=== PATIENT | female | born 2000 | race Caucasian/White ===

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

== ENCOUNTER 2019-12-03 02:14 | Outpatient (CLI) | payer MEDICAID ==
[2019-12-03 02:54] LABS: APPEARANCE,URINE CLEAR; BILIRUBIN,URINE NEGATIVE (NEGATIVE); COLOR,URINE STRAW; GLUCOSE, URINE NEGATIVE (NEGATIVE); KETONES,URINE NEGATIVE (NEGATIVE); LEUKOCYTE ESTERASE,URINE NEGATIVE (NEGATIVE); NITRITE,URINE NEGATIVE (NEGATIVE); PROTEIN,URINE NEGATIVE (NEGATIVE); URINE SPECIFIC GRAVITY 1.008; UROBILINOGEN,URINE NEGATIVE mg/dL (<2.0)
[2019-12-03 03:11] LABS: URINE AMPHETAMINES SCREEN NEGATIVE; URINE BARBITURATES SCREEN NEGATIVE; URINE BENZODIAZEPINES SCREEN NEGATIVE; URINE COCAINE SCREEN NEGATIVE; URINE MARIJUANA (THC) SCREEN NEGATIVE; URINE METHADONE SCREEN NEGATIVE; URINE PHENCYCLIDINE SCREEN NEGATIVE
[2019-12-03] MEDS ORDERED: HYDROXYZINE PAMOATE 50 MG CAPSULE ONE (03:14)
[2019-12-03] MEDS ORDERED: HYDROXYZINE PAMOATE 50 MG CAPSULE PO ONE (03:30)
--- NOTE | 2019-12-03 03:36 | Non Stress Test Report ---
Non Stress Test Datetime Report Generated by CPN: 12/03/2019 03:35 DEMOGRAPHIC EGA NST: 39.3 INDICATION Indication for Study (NST) Other: Gestational age greater than 32 weeks VITAL SIGNS Temperature - NST: 98.0 Pulse - NST: 80 RESP - NST: 17 NBPSYS NST: 132 NBPDIA NST: 76 URINE RESULTS Urine Protein, NST: Negative Urine Ketones - NST: Negative Urine Glucose - NST: Negative Urine Blood - NST: Negative MONITORING Monitor Explained: Monitor Explained; Test Explained; Patient Verbalized Understanding Time on Monitor: 12/03/2019 02:32 Time off Monitor: 12/03/2019 03:22 NST Duration: 50 NST INTERVENTIONS NST Interventions: PO Hydration; Reposition Patient Physician Notified NST: Dr. De BABY A: [id number] BABY A Movement : Present Contraction Frequency : rare FHR Baseline : 135 Accelerations : 15X15 Decelerations : None Variability : Moderate 6-25bpm NST Review: Meets Criteria for Reactive NST NST Review and Verified By : D Bellavance RN NST Results: Reactive NST REPORT Report Trigger: Send Report
== END 2019-12-03 03:31 | disposition home or self-care (01) ==
LOC: LC 02:14
PROVIDERS: ATTEND Obstetrics & Gynecology
PROC: 4A1HXCZ Monitoring of Products of Conception, Cardiac Rate, External Approach (ICD-10-PCS; principal; 2019-12-03)
DX: O26.893 Other specified pregnancy related conditions, third trimester (principal); R10.9 Unspecified abdominal pain; Z3A.39 39 weeks gestation of pregnancy
CPT/HCPCS: 59025; 81005; 80307; J3490

== ENCOUNTER 2019-12-06 02:19 | Outpatient (CLI) | payer MEDICAID ==
[2019-12-06 03:04] LABS: APPEARANCE,URINE CLEAR; BILIRUBIN,URINE NEGATIVE (NEGATIVE); COLOR,URINE STRAW; GLUCOSE, URINE NEGATIVE (NEGATIVE); KETONES,URINE NEGATIVE (NEGATIVE); LEUKOCYTE ESTERASE,URINE NEGATIVE (NEGATIVE); NITRITE,URINE NEGATIVE (NEGATIVE); PROTEIN,URINE NEGATIVE (NEGATIVE); URINE SPECIFIC GRAVITY 1.006; UROBILINOGEN,URINE NEGATIVE mg/dL (<2.0)
[2019-12-06 03:19] LABS: URINE AMPHETAMINES SCREEN NEGATIVE; URINE BARBITURATES SCREEN NEGATIVE; URINE BENZODIAZEPINES SCREEN NEGATIVE; URINE COCAINE SCREEN NEGATIVE; URINE MARIJUANA (THC) SCREEN NEGATIVE; URINE METHADONE SCREEN NEGATIVE; URINE PHENCYCLIDINE SCREEN NEGATIVE
--- NOTE | 2019-12-06 03:42 | Non Stress Test Report ---
Non Stress Test Datetime Report Generated by CPN: 12/06/2019 03:41 DEMOGRAPHIC EGA NST: 39.6 INDICATION Indication for Study (NST) Other: LC- ctx MONITORING Monitor Explained: Monitor Explained; Test Explained; Patient Verbalized Understanding Time on Monitor: 12/06/2019 02:37 Time off Monitor: 12/06/2019 03:34 NST Duration: 57 NST INTERVENTIONS NST Interventions: PO Hydration; Reposition Patient Physician Notified NST: Dr. Blanco BABY A: [id number] BABY A Movement : Present Movement : Present Contraction Frequency : irregular FHR Baseline : 130 Accelerations : 15X15 Decelerations : None Variability : Moderate 6-25bpm NST Review: Meets Criteria for Reactive NST NST Review and Verified By : Ramiro Puckett RN NST Results: Reactive NST REPORT Report Trigger: Send Report
== END 2019-12-06 03:42 | disposition home or self-care (01) ==
LOC: LC 02:19
PROVIDERS: ATTEND Obstetrics & Gynecology Gynecology
PROC: 4A1HXCZ Monitoring of Products of Conception, Cardiac Rate, External Approach (ICD-10-PCS; principal; 2019-12-06)
DX: O47.1 False labor at or after 37 completed weeks of gestation (principal); Z3A.39 39 weeks gestation of pregnancy
CPT/HCPCS: 59025; 80307; 81005

== ENCOUNTER 2019-12-09 18:13 | Outpatient (CLI) | payer MEDICAID ==
[2019-12-09 19:24] LABS: APPEARANCE,URINE SLIGHTLY-CLOUDY; BILIRUBIN,URINE NEGATIVE (NEGATIVE); COLOR,URINE YELLOW; GLUCOSE, URINE NEGATIVE (NEGATIVE); KETONES,URINE NEGATIVE (NEGATIVE); LEUKOCYTE ESTERASE,URINE NEGATIVE (NEGATIVE); NITRITE,URINE NEGATIVE (NEGATIVE); PROTEIN,URINE 30 mg/dL (NEGATIVE); URINE SPECIFIC GRAVITY 1.021; UROBILINOGEN,URINE NEGATIVE mg/dL (<2.0)
[2019-12-09 19:45] LABS: URINE AMPHETAMINES SCREEN NEGATIVE; URINE BARBITURATES SCREEN NEGATIVE; URINE BENZODIAZEPINES SCREEN NEGATIVE; URINE COCAINE SCREEN NEGATIVE; URINE MARIJUANA (THC) SCREEN NEGATIVE; URINE METHADONE SCREEN NEGATIVE; URINE PHENCYCLIDINE SCREEN NEGATIVE
--- NOTE | 2019-12-09 21:25 | Non Stress Test Report ---
Non Stress Test Datetime Report Generated by CPN: 12/09/2019 21:25 DEMOGRAPHIC EGA NST: 40.2 INDICATION Indication for Study (NST) Other: IUP40 weeks, Abdominal pain MONITORING Monitor Explained: Monitor Explained; Test Explained; Patient Verbalized Understanding Time on Monitor: 12/09/2019 18:49 Time off Monitor: 12/09/2019 21:07 NST Duration: 138 NST INTERVENTIONS NST Interventions: PO Hydration Physician Notified NST: Dr De BABY A: [id number] BABY A Movement : Present Contraction Frequency : irreg FHR Baseline : 135 Accelerations : 15X15 Decelerations : None Variability : Moderate 6-25bpm NST Review: Meets Criteria for Reactive NST NST Review and Verified By : D Bellavance RN NST Results: Reactive NST REPORT Report Trigger: Send Report
== END 2019-12-09 21:29 | disposition home or self-care (01) ==
LOC: LC 18:13
PROVIDERS: ATTEND Obstetrics & Gynecology
PROC: 4A1HXCZ Monitoring of Products of Conception, Cardiac Rate, External Approach (ICD-10-PCS; principal; 2019-12-09)
DX: O47.1 False labor at or after 37 completed weeks of gestation (principal); O99.89 Other specified diseases and conditions complicating pregnancy, childbirth and the puerperium; M54.9 Dorsalgia, unspecified; Z3A.40 40 weeks gestation of pregnancy
CPT/HCPCS: 59025; 80307; 81005

== ENCOUNTER 2019-12-10 00:50 | Inpatient (IN) | payer MEDICAID ==
[2019-12-10 01:17] LABS: APPEARANCE,URINE CLOUDY; BILIRUBIN,URINE NEGATIVE (NEGATIVE); COLOR,URINE YELLOW; GLUCOSE, URINE NEGATIVE (NEGATIVE); KETONES,URINE NEGATIVE (NEGATIVE); LEUKOCYTE ESTERASE,URINE MODERATE (NEGATIVE); NITRITE,URINE NEGATIVE (NEGATIVE); PROTEIN,URINE NEGATIVE (NEGATIVE); URINE SPECIFIC GRAVITY 1.005; UROBILINOGEN,URINE NEGATIVE mg/dL (<2.0)
[2019-12-10 01:39] LABS: URINE AMPHETAMINES SCREEN NEGATIVE; URINE BARBITURATES SCREEN NEGATIVE; URINE BENZODIAZEPINES SCREEN NEGATIVE; URINE COCAINE SCREEN NEGATIVE; URINE MARIJUANA (THC) SCREEN NEGATIVE; URINE METHADONE SCREEN NEGATIVE; URINE PHENCYCLIDINE SCREEN NEGATIVE
[2019-12-10] MEDS ORDERED: RINGERS SOLUTION,LACTATED 1,000 ML IV ONE (03:03)
[2019-12-10] MEDS ORDERED: RINGERS SOLUTION,LACTATED 1,000 ML IV PRN (03:03)
[2019-12-10 03:43] LABS: ABSOLUTE BASOPHILS # (AUTO) 0.1 10^3/uL (0.0-0.2); ABSOLUTE LYMPHOCYTES (AUTO) 1.5 10^3/uL (0.5-4.7); ABSOLUTE MONOCYTES (AUTO) 0.9 10^3/uL (0.1-1.4); BASOPHILS % (AUTO) 0.7 % (0-2); HEMATOCRIT 32.8 % (36.0-47.0); HEMOGLOBIN 10.7 g/dL (12.0-15.5); LYMPHOCYTES % (AUTO) 7.7 % (13-45); MEAN CORPUSCULAR HEMOGLOBIN 22.9 pg (27.0-33.4); MEAN CORPUSCULAR HGB CONC 32.5 g/dL (32.0-36.0); MEAN CORPUSCULAR VOLUME 71 fl (80-97); MONOCYTES % (AUTO) 4.4 % (3-13); PLATELET COUNT 360 10^3/uL (150-450); RED BLOOD COUNT 4.65 10^6/uL (3.72-5.28); RED CELL DISTRIBUTION WIDTH 15.7 % (11.5-14.0); SEGMENTED NEUTROPHILS % (AUTO) 87.2 % (42-78); TOTAL CELLS COUNTED % (AUTO) 100 %; WHITE BLOOD COUNT 19.5 10^3/uL (4.0-10.5)
[2019-12-10] MEDS ORDERED: ACETAMINOPHEN WITH CODEINE #3 TABLET ONE (04:39)
[2019-12-10] MEDS ORDERED: ZOLPIDEM TARTRATE 5 MG TABLET PO PRN (04:43)
[2019-12-10] MEDS ORDERED: BENZOCAINE/MENTHOL AEROSOL SPRAY 56 ML TOP PRN (04:43)
[2019-12-10] MEDS ORDERED: GLYCERIN/WITCH HAZEL LEAF 1 EACH MED..WIPE TP PRN (04:43)
[2019-12-10] MEDS ORDERED: PROMETHAZINE HCL INJ 25 MG/1 ML VIAL IV PRN (04:43)
[2019-12-10] MEDS ORDERED: OXYTOCIN/NORMAL SALINE 20 UNIT/1,000 ML RTUINJ IV PRN (04:43)
[2019-12-10] MEDS ORDERED: PSEUDOEPHEDRINE HCL 30 MG TABLET PO PRN (04:43)
[2019-12-10] MEDS ORDERED: DIBUCAINE 1% OINTMENT 28 GM TP PRN (04:43)
[2019-12-10] MEDS ORDERED: ACETAMINOPHEN WITH CODEINE #3 TABLET PO PRN ×2 (04:43)
[2019-12-10] MEDS ORDERED: PROMETHAZINE HCL 25 MG SUPP.RECT PR PRN (04:43)
[2019-12-10] MEDS ORDERED: NA PHOS,M-B/NA PHOS,DI-BA (ADULT) 133 ML ENEMA PR PRN (04:43)
[2019-12-10] MEDS ORDERED: MEASLES,MUMPS&RUBELLA VACC/PF 0.5 ML VIAL SUBCUT PRN (04:43)
[2019-12-10] MEDS ORDERED: ACETAMINOPHEN 650 MG SUPP.RECT PR PRN (04:43)
[2019-12-10] MEDS ORDERED: DIPHENHYDRAMINE HCL 25 MG CAPSULE PO PRN (04:43)
[2019-12-10] MEDS ORDERED: MAGNESIUM HYDROXIDE SUSP 30 ML UDCUP PO PRN (04:43)
[2019-12-10] MEDS ORDERED: PROMETHAZINE HCL 25 MG TABLET PO PRN (04:43)
[2019-12-10] MEDS ORDERED: DIPH/PERTUSS(ACELL)/TETANUS VAC/PF 0.5 ML SYR (>=10YO) IM PRN (04:43)
--- NOTE | 2019-12-10 05:08 | Delivery Summary ---
Del Sum A-C Datetime Report Generated by CPN: 12/10/2019 05:07 DELIVERY PERSONNEL DELIVERY PERSONNEL: [id number] Delivery Doctor:: Charley De MD Labor and Delivery Nurse:: Rosy Bernard RNdope heater Nurse:: Mily Vicente, RNC MATERNAL INFORMATION Delivery Anesthesia: None Medications After Delivery: Pitocin Bolus-Please Comment; Pitocin Drip 20 Units/1000ml NSS Estimated Blood Loss (ml): 250 Delivery QBL: 250 Maternal Complications: None LABOR SUMMARY EDC: 12/07/2019 00:00 No. Babies in Womb: 1 Attempted: No Labor Anesthesia: None LABOR INFORMATION Reason for Induction: Not Applicable Onset of Labor: 12/10/2019 02:59 Complete Dilatation: 12/10/2019 04:02 Oxytocin: N/A Group B Beta Strep: Negative Antibiotics # of Doses: n/a Steroids Given: None Reason Steroids Not Administered: Not Applicable MEMBRANES Membranes Rupture Method: Spontaneous Rupture of Membranes: 12/10/2019 04:03 Length of Rupture (hr): 0.18 Amniotic Fluid Color: Clear Amniotic Fluid Amount: Small Amniotic Fluid Odor: Normal STAGES OF LABOR Stage 1 hr: 1 Stage 1 min: 3 Stage 2 hr: 0 Stage 2 min: 12 Stage 3 hr: 0 Stage 3 min: 8 Total Time in Labor hr: 1 Total Time in Labor min: 23 VAGINAL DELIVERY Episiotomy: None Laceration #1: Vaginal Laceration Extension #1: N/A Laceration #2: None Laceration Extension #2: N/A Laceration #3: None Laceration Extension #3: N/A Laceration Repair: Yes Laceration Repair Note: labial laceration repaired with 3-0 chromic suture times two Sponge Count Correct: Yes; Vaginal Sweep Performed Sharps Count Correct: No CSECTION DELIVERY Primary Indication: N/A Secondary Indication: N/A CSection Incidence: N/A Labor: N/A Elective: N/A CSection Incision: N/A BABY A INFORMATION Delivery Date/Time: 12/10/2019 04:14 Method of Delivery: Vaginal Born in Route : No : N/A Forceps: N/A Vacuum Extraction: N/A Shoulder Dystocia : No PRESENTATION/POSITION BABY A Presentation: Cephalic Cephalic Presentation: Vertex Vertex Position: Right Occipital Anterior Breech Presentation: N/A PLACENTA INFORMATION BABY A Placenta Delivery Time : 12/10/2019 04:22 Placenta Method of Delivery: Spontaneous Placenta Status: Delivered SCORES BABY A Heart Rate 1 min: >100 bpm Resp Effort 1 min: Good Cry Reflex Irritability 1 min: Cough or Sneeze or Pulls Away Muscle Tone 1 min: Active Motion Color 1 min: Blue/Pale Resuscitation Effort 1 min: Tactile Stimulation SCORE 1 MIN: 8 Heart Rate 5 min: >100 bpm Resp Effort 5 min: Good Cry Reflex Irritability 5 min: Cough or Sneeze or Pulls Away Muscle Tone 5 min: Active Motion Color 5 min: Body Point Isabel, Extremities Blue Resuscitation Effort 5 min: Tactile Stimulation SCORE 5 MIN: 9 INFORMATION BABY A Gestational Age at Delivery: 40.3 Gestational Status: Full Term- 39- 40.6 Weeks Outcome : Liveborn Infant Condition : Stable Infant Sex: Male IDENTIFICATION BABY A Verification Date/Time: 12/10/2019 04:33 ID Band Number: [id number] Mother's Name Verified: Yes Infant RN Verifying : Uche, RN and ERob Unger, RN WEIGHT/LENGTH BABY A Infant Birthweight (gm): 3505 Weight (lb): 7 Weight (oz): 12 Infant Length (in): 20.00 Length (cm): 50.80 CORD INFORMATION BABY A No. Cord Vessels: 3 Nuchal Cord : Around Neck x1, Loose Cord Blood Taken: Yes-For Storage (Mom's Blood type +) Infant Suction: Mouth ASSESSMENT BABY A Complications: None Physical Findings at Delivery: Within Normal Limits Respirations: Appears Normal Skin to Skin: Yes Range Rider/ALS Called : No Infant Care By: Karyn Vicente RN Transferred To: Remains with Mother BABY B INFORMATION : N/A SIGNATURES Signature: with User ID: [email or web address]
[2019-12-10] MEDS: IBUPROFEN 800 MG TABLET PO SCH ×3 (08:11→21:08)
[2019-12-10] MEDS: SENNOSIDES/DOCUSATE 8.6-50 MG 1 EACH TABLET PO SCH (10:31)
[2019-12-10] MEDS: FERROUS SULFATE 325 MG TABLET PO SCH ×2 (10:31→17:30)
[2019-12-10] MEDS: PRENATAL VITAMIN W DHA CAPSULE PO SCH (10:31)
[2019-12-10] MEDS: DOCUSATE SODIUM 100 MG CAPSULE PO SCH ×2 (10:31→17:30)
[2019-12-10] MEDS: FAMOTIDINE 20 MG TABLET PO SCH ×2 (10:34→22:02)
[2019-12-11] MEDS: IBUPROFEN 800 MG TABLET PO SCH ×3 (05:24→21:00)
[2019-12-11 07:03] LABS: HEMATOCRIT 28.7 % (36.0-47.0); HEMOGLOBIN 9.4 g/dL (12.0-15.5); MEAN CORPUSCULAR HEMOGLOBIN 23.1 pg (27.0-33.4); MEAN CORPUSCULAR HGB CONC 32.8 g/dL (32.0-36.0); MEAN CORPUSCULAR VOLUME 71 fl (80-97); PLATELET COUNT 312 10^3/uL (150-450); RED BLOOD COUNT 4.06 10^6/uL (3.72-5.28); RED CELL DISTRIBUTION WIDTH 16.3 % (11.5-14.0); WHITE BLOOD COUNT 13.6 10^3/uL (4.0-10.5)
[2019-12-11] MEDS: SENNOSIDES/DOCUSATE 8.6-50 MG 1 EACH TABLET PO SCH (09:10)
[2019-12-11] MEDS: PRENATAL VITAMIN W DHA CAPSULE PO SCH (09:10)
[2019-12-11] MEDS: DOCUSATE SODIUM 100 MG CAPSULE PO SCH ×2 (09:10→17:20)
[2019-12-11] MEDS: FERROUS SULFATE 325 MG TABLET PO SCH ×2 (09:10→17:20)
[2019-12-11] MEDS: FAMOTIDINE 20 MG TABLET PO SCH ×2 (09:10→21:59)
--- NOTE | 2019-12-11 12:02 | PDOC PROGRESS REPORT ---
Subjective-OB Progress Note for:: 12/11/19 Subjective: 19yo G1 now P1 s/p ppd 1. Voiding and ambulating without difficulty. Denies any concerns at this time. Physical Exam (OB) Vital Signs: Temp Pulse Resp BP Pulse Ox 97.7 F 75 16 119/73 100 12/11/19 08:06 12/11/19 08:06 12/11/19 08:06 12/11/19 08:06 12/11/19 08:06 Intake & Output 12/10/19 12/11/19 12/12/19 06:59 06:59 06:59 Intake Total 840 Balance 840 Weight 80.8 kg - General General Appearance: Appears well In distress: None - PIH/Pre-Eclampsia DTR's: 1 + Clonus: Negative Headache: Absent Epigastric Pain: No Visual Changes: No - Episiotomy/Laceration Site Condition: Well Approximated - Lochia Lochia Amount: Scant < 10 ml Lochia Color: Rubra/Red - Abdomen Description: Soft Hernia Present: No Fundal Description: Firm, Midline Fundal Height: u/u - u/2 - Respiratory Respiratory Status: No respiratory distress - Extremities Upper extremity: Normal inspection Lower extremities: Normal inspection - Neurological Cognition: Inattentive Orientation: AAOx4 - Psychological Associated symptoms: Flat affect Objective-Diagnostic Laboratory: 12/11/19 06:52 12/11/19 06:52 WBC 13.6 H RBC 4.06 Hgb 9.4 L Hct 28.7 L MCV 71 L MCH 23.1 L MCHC 32.8 RDW 16.3 H Plt Count 312 Assessment and Plan(PN) - Assessment and Plan (1) Vaginal delivery Is this a current diagnosis for this admission?: Yes Plan: routine pp care (2) Rubella nonimmune status, delivered, current hospitalization Is this a current diagnosis for this admission?: Yes Plan: vaccinate prior to discharge (3) Anemia complicating , third trimester Is this a current diagnosis for this admission?: Yes Plan: continue FeSO4 BID and increase dietary iron (4) Depression affecting in third trimester, antepartum Is this a current diagnosis for this admission?: Yes Plan: pt currently receiving outpatient counseling at [facility]. Continue to monitor for s/s of PP depression - Time Spent with Patient Time with patient: Less than 15 minutes - Disposition Anticipated Discharge: Home Within: within 24 hours
[2019-12-12] MEDS: IBUPROFEN 800 MG TABLET PO SCH (05:20)
[2019-12-12 08:45] VITALS: BP 126/74
[2019-12-12] MEDS: DOCUSATE SODIUM 100 MG CAPSULE PO SCH (09:09)
[2019-12-12] MEDS: FERROUS SULFATE 325 MG TABLET PO SCH (09:09)
[2019-12-12] MEDS: FAMOTIDINE 20 MG TABLET PO SCH (09:09)
[2019-12-12] MEDS: PRENATAL VITAMIN W DHA CAPSULE PO SCH (09:10)
[2019-12-12] MEDS: SENNOSIDES/DOCUSATE 8.6-50 MG 1 EACH TABLET PO SCH (09:10)
--- NOTE | 2019-12-12 10:26 | PDOC DISCHARGE SUMMARY ---
Impression - Admit/DC Date/PCP Admission Date/Primary Care Provider: 12/10/19 03:11 SHAYY PALACIOS MD Discharge Date: 12/12/19 - PP Day #2, bottle feeding, UOB, voiding, O+, rubella Non-immune, MMR encouraged. - Additional Information Resuscitation Status: Full Code Discharge Diet: As Tolerated, Regular Discharge Activity: Activity As Tolerated, No Lifting Over 10 Pounds, Pelvic Rest Referrals: SHAYY PALACIOS MD [Primary Care Provider] - Prescriptions: Ibuprofen [Motrin 800 mg Tablet] 800 mg PO Q8 #60 tablet Vit/Dha [ Multi + Dha Capsule] 1 cap PO DAILY #30 capsule Home Medications: Ibuprofen [Motrin 800 mg Tablet] 800 mg PO Q8 #60 tablet 12/12/19 Vit/Dha [ Multi + Dha Capsule] 1 cap PO DAILY #30 capsule 12/12/19 HPI Reason(s) for Admission: Onset of Labor Intrapartum Procedure(s): Spontaneous Vaginal Delivery Complication(s): Laceration-Labial Laceration-Degree: 1st Results Laboratory Results: WBC 13.6 10^3/uL (4.0-10.5) H 12/11/19 06:52 RBC 4.06 10^6/uL (3.72-5.28) 12/11/19 06:52 Hgb 9.4 g/dL (12.0-15.5) L 12/11/19 06:52 Hct 28.7 % (36.0-47.0) L 12/11/19 06:52 MCV 71 fl (80-97) L 12/11/19 06:52 MCH 23.1 pg (27.0-33.4) L 12/11/19 06:52 MCHC 32.8 g/dL (32.0-36.0) 12/11/19 06:52 RDW 16.3 % (11.5-14.0) H 12/11/19 06:52 Plt Count 312 10^3/uL (150-450) 12/11/19 06:52 Lymph % (Auto) 7.7 % (13-45) L 12/10/19 03:30 [place] % (Auto) 4.4 % (3-13) 12/10/19 03:30 Eos % (Auto) 0.0 % (0-6) 12/10/19 03:30 Baso % (Auto) 0.7 % (0-2) 12/10/19 03:30 Absolute Neuts (auto) 17.0 10^3/uL (1.7-8.2) H 12/10/19 03:30 Absolute Lymphs (auto) 1.5 10^3/uL (0.5-4.7) 12/10/19 03:30 Absolute Monos (auto) 0.9 10^3/uL (0.1-1.4) 12/10/19 03:30 Absolute Eos (auto) 0.0 10^3/uL (0.0-0.6) 12/10/19 03:30 Absolute Basos (auto) 0.1 10^3/uL (0.0-0.2) 12/10/19 03:30 Seg Neutrophils % 87.2 % (42-78) H 12/10/19 03:30 Urine Color YELLOW 12/10/19 01:05 Urine Appearance CLOUDY 12/10/19 01:05 Urine pH 7.0 (5.0-9.0) 12/10/19 01:05 Ur Specific [place] 1.005 12/10/19 01:05 Urine Protein NEGATIVE mg/dL (NEGATIVE) 12/10/19 01:05 Urine Glucose (UA) NEGATIVE mg/dL (NEGATIVE) 12/10/19 01:05 Urine Ketones NEGATIVE mg/dL (NEGATIVE) 12/10/19 01:05 Urine Blood MODERATE (NEGATIVE) H 12/10/19 01:05 Urine Nitrite NEGATIVE (NEGATIVE) 12/10/19 01:05 Urine Bilirubin NEGATIVE (NEGATIVE) 12/10/19 01:05 Urine Urobilinogen NEGATIVE mg/dL (<2.0) 12/10/19 01:05 Ur Leukocyte Esterase MODERATE (NEGATIVE) H 12/10/19 01:05 Urine Ascorbic Acid NEGATIVE (NEGATIVE) 12/10/19 01:05 Urine Opiates Screen NEGATIVE 12/10/19 01:05 Urine Methadone Screen NEGATIVE 12/10/19 01:05 Ur Barbiturates Screen NEGATIVE 12/10/19 01:05 Ur Phencyclidine Scrn NEGATIVE 12/10/19 01:05 Ur Amphetamines Screen NEGATIVE 12/10/19 01:05 U Benzodiazepines Scrn NEGATIVE 03/31/20 01:05 Urine Cocaine Screen NEGATIVE 12/10/19 01:05 U Marijuana (THC) Screen NEGATIVE 12/10/19 01:05 RPR NONREACTIVE (NONREACTIVE) 12/10/19 03:30 Blood Type O POSITIVE 12/10/19 03:30 Antibody Screen NEGATIVE 12/10/19 03:30 Plan Plan of Treatment: d/c home, f/up with [facility] in 4 wks Time Spent: Less than 30 Minutes
== END 2019-12-12 13:15 | disposition home or self-care (01) | DRG 807 ==
LOC: LC 00:50 → LR 03:11 → 2S 06:34
PROVIDERS: ADMIT Obstetrics & Gynecology; ATTEND Obstetrics & Gynecology
PROC: 10E0XZZ Delivery of Products of Conception, External Approach (ICD-10-PCS; principal; 2019-12-10)
PROC: 0UQMXZZ Repair Vulva, External Approach (ICD-10-PCS; 2019-12-10)
PROC: 3E0234Z Introduction of Serum, Toxoid and Vaccine into Muscle, Percutaneous Approach (ICD-10-PCS; 2019-12-12)
DX: O99.02 Anemia complicating childbirth (principal); Z37.0 Single live birth; O70.0 First degree perineal laceration during delivery; D64.9 Anemia, unspecified; O99.344 Other mental disorders complicating childbirth; F32.9 Major depressive disorder, single episode, unspecified; O69.81X0 Labor and delivery complicated by cord around neck, without compression, not applicable or unspecified; Z34.83 Encounter for supervision of other normal pregnancy, third trimester; Z23 Encounter for immunization; Z28.21 Immunization not carried out because of patient refusal; Z3A.40 40 weeks gestation of pregnancy
CPT/HCPCS: 36415; 80307; 81005; 85025; 85027; 86592; 86850; 86900; 86901; 90715; J3490

== ENCOUNTER 2020-04-25 17:25 | Emergency (ER) | payer MEDICAID ==
--- NOTE | 2020-04-25 18:17 | ER Document Report ---
ED Psych Disorder / Suicide <JACLYN LIRA - Last Filed: 04/25/20 19:03> - General Mode of Arrival: Ambulatory Information source: Patient TRAVEL OUTSIDE OF THE [place] IN LAST 30 DAYS: No - HPI Patient complains to provider of: Suicidal ideation Onset: This afternoon Pain Level: Denies Associated symptoms: Depressed Similar symptoms previously: Yes Recently seen / treated by doctor: No - Related Data Home Medications: prozac 20mg daily <GERALD HACKETT - Last Filed: 04/25/20 19:18> - General Chief Complaint: Post Problem Stated Complaint: DEPRESSION Time Seen by Provider: 04/25/20 17:59 Primary Care Provider: Stephanie Lim [Outside] - Follow up in 1 week (Continue medication management. Request individual therapy.) [facility] [Outside] - Follow up as needed [facility] [Outside] - Follow up as needed SHAYY PALACIOS MD [Primary Care Provider] - Follow up as needed Notes: Patient presents 4 months . Patient states she has history of d epression and has been treated for depression since her most recent delivery. Patient states that she is not feeling as though her medication is helping and she has been having thoughts of suicide. Patient denies any attempts or any plan. Patient denies any other stressors in her life at this time. Patient takes Prozac and states that her dose has been adjusted 2 months ago. (GERALD HACKETT) - Related Data Allergies/Adverse Reactions: No Known Allergies Allergy (Verified 12/09/19 18:27) Past Medical History - General Information source: Patient - Social History Smoking Status: Never Smoker Chew tobacco use (# tins/day): No Frequency of alcohol use: None Drug Abuse: None Occupation: [employer] Lives with: Family Family History: Reviewed & Not Pertinent Renal/ Medical History: Denies: Hx Peritoneal Dialysis Psychiatric Medical History: Reports: Hx Depression, Other - depression Surgical Hx: Negative - Immunizations Immunizations up to date: Yes Hx Diphtheria, Pertussis, Tetanus Vaccination: Yes <GERALD HACKETT - Last Filed: 04/25/20 19:18> Review of Systems - Review of Systems Constitutional: No symptoms reported EENT: No symptoms reported Cardiovascular: No symptoms reported Respiratory: No symptoms reported Gastrointestinal: No symptoms reported. denies: Vomiting Genitourinary: No symptoms reported Female Genitourinary: No symptoms reported Musculoskeletal: No symptoms reported Skin: No symptoms reported Hematologic/Lymphatic: No symptoms reported Neurological/Psychological: Depression, Suicidal ideation. denies: Homicidal ideation <GERALD HACKETT - Last Filed: 04/25/20 19:18> Physical Exam - General General appearance: Appears well, Alert In distress: None - HEENT Head: Normocephalic, Atraumatic Eyes: Normal Conjunctiva: Normal Nasal: Normal Mouth/Lips: Normal Mucous membranes: Normal Neck: Normal, Supple. No: Lymphadenopathy - Respiratory Respiratory status: No respiratory distress Chest status: Nontender Breath sounds: Normal. No: Rales, Rhonchi, Stridor, Wheezing Chest palpation: Normal - Cardiovascular Rhythm: Regular Heart sounds: S1 appreciated, S2 appreciated Murmur: No - Abdominal Inspection: Normal Distension: No distension Tenderness: Nontender - Back Back: Normal. No: CVA tenderness - Extremities General upper extremity: Normal inspection, Nontender, Normal ROM General lower extremity: Normal inspection, Nontender, Normal ROM - Neurological Neuro grossly intact: Yes Cognition: Normal [place] Coma Scale Eye Opening: Spontaneous Ricky Coma Scale Verbal: Oriented Ricky Coma Scale Motor: Obeys Commands Ricky Coma Scale Total: 15 - Psychological Associated symptoms: Depressed - Skin Skin Temperature: Warm Skin Moisture: Dry Skin Color: Normal <GERALD HACKETT - Last Filed: 04/25/20 19:18> - Vital signs Vitals: Temp Pulse Resp BP Pulse Ox 97.9 F 94 16 137/55 H 99 04/25/20 17:30 04/25/20 17:30 04/25/20 17:30 04/25/20 17:30 04/25/20 17:30 Course - Laboratory Result Diagrams: 04/25/20 18:15 04/25/20 18:15 <JACLYN LIRA - Last Filed: 04/25/20 19:03> - Laboratory Result Diagrams: 04/25/20 18:15 04/25/20 18:15 <GERALD HACKETT - Last Filed: 04/25/20 19:18> - Re-evaluation Re-evalutation: 04/25/20 18:10 Behavioral health team notified of patient's arrival and need for assessment. 08/15/20 19:12 Patient does not meet IVC criteria after evaluation by behavioral health team. They do make medication recommendations to continue her Prozac and to add Zyprexa 2.5 mg twice a day. Patient is followed by [facility] and patient will be following up with her mental health provider Monday for recheck. Patient is agreeable with this discharge plan of care at this time. Patient is medically clear for discharge at this time. (GERALD HACKETT) - Vital Signs Vital signs: Temp Pulse Resp BP Pulse Ox 97.9 F 94 16 137/55 H 99 04/25/20 17:30 04/25/20 17:30 04/25/20 17:30 04/25/20 17:30 04/25/20 17:30 - Laboratory Laboratory results interpreted by dc: 04/25/20 04/25/20 04/25/20 18:15 18:15 18:35 WBC 10.7 H MCV 77 L MCH 25.3 L RDW 14.7 H Lymph % (Auto) 12.9 L Absolute Neuts (auto) 8.6 H Seg Neutrophils % 80.9 H Urine Blood LARGE H Salicylates < 1.0 L Acetaminophen < 10 L 04/25/20 04/25/20 04/25/20 18:15 18:15 18:35 WBC 10.7 H MCV 77 L MCH 25.3 L RDW 14.7 H Lymph % (Auto) 12.9 L Absolute Neuts (auto) 8.6 H Seg Neutrophils % 80.9 H Urine Blood LARGE H Salicylates < 1.0 L Acetaminophen < 10 L 04/25/20 19:17 Labs- All tests 24 hr 04/25/20 04/25/20 04/25/20 18:15 18:15 18:15 WBC 10.7 H RBC 5.01 Hgb 12.7 Hct 38.4 MCV 77 L MCH 25.3 L MCHC 33.0 RDW 14.7 H Plt Count 392 Lymph % (Auto) 12.9 L [place] % (Auto) 5.3 Eos % (Auto) 0.4 Baso % (Auto) 0.5 Absolute Neuts (auto) 8.6 H Absolute Lymphs (auto) 1.4 Absolute Monos (auto) 0.6 Absolute Eos (auto) 0.0 Absolute Basos (auto) 0.1 Seg Neutrophils % 80.9 H Sodium 139.1 Potassium 4.0 Chloride 106 Carbon Dioxide 26 Anion Gap 7 BUN 9 Creatinine 0.75 Est GFR ( Amer) > 60 Est GFR (MDRD) Non-Af > 60 Glucose 108 Calcium 9.7 Total Bilirubin 0.5 Direct Bilirubin 0.0 Neonat Total Bilirubin Not Reportable Neonat Direct Bilirubin Not Reportable Neonat Indirect Bili Not Reportable AST 26 ALT 15 Alkaline Phosphatase 101 Total Protein 7.8 Albumin 4.5 Serum HCG, Qual NEGATIVE Urine Color Urine Appearance Urine pH Ur Specific [place] Urine Protein Urine Glucose (UA) Urine Ketones Urine Blood Urine Nitrite Urine Bilirubin Urine Urobilinogen Ur Leukocyte Esterase Urine WBC (Auto) Urine RBC (Auto) U Hyaline Cast (Auto) Urine Bacteria (Auto) Squamous Epi Cells Auto Urine Mucus (Auto) Urine Ascorbic Acid Salicylates < 1.0 L Urine Opiates Screen Urine Methadone Screen Acetaminophen < 10 L Ur Barbiturates Screen Ur Phencyclidine Scrn Ur Amphetamines Screen U Benzodiazepines Scrn Urine Cocaine Screen U Marijuana (THC) Screen Serum Alcohol < 10 04/25/20 04/25/20 18:35 18:35 WBC RBC Hgb Hct MCV MCH MCHC RDW Plt Count Lymph % (Auto) [place] % (Auto) Eos % (Auto) Baso % (Auto) Absolute Neuts (auto) Absolute Lymphs (auto) Absolute Monos (auto) Absolute Eos (auto) Absolute Basos (auto) Seg Neutrophils % Sodium Potassium Chloride Carbon Dioxide Anion Gap BUN Creatinine Est GFR ( Amer) Est GFR (MDRD) Non-Af Glucose Calcium Total Bilirubin Direct Bilirubin Neonat Total Bilirubin Neonat Direct Bilirubin Neonat Indirect Bili AST ALT Alkaline Phosphatase Total Protein Albumin Serum HCG, Qual Urine Color YELLOW Urine Appearance CLEAR Urine pH 6.0 Ur Specific [place] 1.004 Urine Protein NEGATIVE Urine Glucose (UA) NEGATIVE Urine Ketones NEGATIVE Urine Blood LARGE H Urine Nitrite NEGATIVE Urine Bilirubin NEGATIVE Urine Urobilinogen NEGATIVE Ur Leukocyte Esterase NEGATIVE Urine WBC (Auto) 2 Urine RBC (Auto) 21 U Hyaline Cast (Auto) 1 Urine Bacteria (Auto) TRACE Squamous Epi Cells Auto <1 Urine Mucus (Auto) OCC Urine Ascorbic Acid NEGATIVE Salicylates Urine Opiates Screen NEGATIVE Urine Methadone Screen NEGATIVE Acetaminophen Ur Barbiturates Screen NEGATIVE Ur Phencyclidine Scrn NEGATIVE Ur Amphetamines Screen NEGATIVE U Benzodiazepines Scrn NEGATIVE Urine Cocaine Screen NEGATIVE U Marijuana (THC) Screen NEGATIVE Serum Alcohol (LEW,KELTSIE) Discharge <JACLYN LIRA - Last Filed: 04/25/20 19:03> <GERALD HACKETT - Last Filed: 04/25/20 19:18> - Discharge Clinical Impression: Post depression, Family history of bipolar disorder, Passive suicidal ideations Depression Qualifiers: Depression Type: unspecified Qualified Code(s): F32.9 - Major depressive disorder, single episode, unspecified Condition: Stable Disposition: HOME, SELF-CARE Additional Instructions: You have been evaluated by both medical and behavioral health teams for post depression, history of depression, and passive suicidal thoughts. You have been deemed appropriate for discharge. While in the emergency department you received the following services/or had access to: Medical screening and assessment, nursing services, dietary services, pharmacological services, one-on-one counseling and/or psychotherapy, environmental services, and continuous observation by a patient product safety tester. Medication recommendations have been have been provided and are as follows: Continue home Prozac 20MG daily for depression Add Zyprexa 2.5MG twice a day for mood stabilization/impulse control Please take your medications as prescribe and do not stop these medications without discussion with your prescribing physician. This combination mimics a medication called Symbyax. DEPRESSION: Your evaluation reveals that you have mental depression. While symptoms may be vague, they often include disturbance of sleep, fatigue, loss of appetite, and general loss of interest in life. While depression may be a side effect of drugs, or a reaction to a major change in your life, many cases have no known cause. If depression is acute, and related to a major loss in your life, you can expect it to clear completely with time. If you have been depressed a long time, are prone to repeated bouts of depression or low mood, or have been thinking of suicide, get help. Depression can be treated with anti-depressant medication and counselling. Long-term depression will often take a few weeks to clear, even with appropriate medication. Follow-up care is important. SUICIDAL IDEATION: Suicidal ideation is a common medical term for thoughts about suicide, which may be as detailed as a formulated plan, without the suicidal act itself. Although most people who undergo suicidal ideation do not commit suicide, some go on to make suicide attempts. The range of suicidal ideation varies greatly from fleeting to detailed planning, role playing, and unsuccessful attempts. While thoughts about suicide are common, most people do not carry out serious actions to commit suicide. Based upon your evaluation and discussion with you, we do not believe you are currently at risk to act upon your thoughts of suicide. You have agreed to return to the Emergency Department, at any time, if you feel inclined to act upon your suicidal thoughts. FOLLOW-UP CARE: You are recommended to follow up with your current medication provider at [facility] ([facility]) within 5-7 days and request ind ividual therapy. You have also been provided both mobile crisis numbers for crisis/talk therapy/linkage to other services and supports. If you experience worsening or a significant change in your symptoms, notify the physician immediately or return to the Emergency Department at any time for re-evaluation. Prescriptions: Olanzapine [Zyprexa 2.5 Mg Tablet] 2.5 mg PO BID #30 tablet Referrals: SHAYY PALACIOS MD [Primary Care Provider] - Follow up as needed [facility] [Outside] - Follow up as needed [facility] [Outside] - Follow up as needed [facility] [Outside] - Follow up in 1 week (Continue medication management. Request individual therapy.)
[2020-04-25 18:45] LABS: ABSOLUTE BASOPHILS # (AUTO) 0.1 10^3/uL (0.0-0.2); ABSOLUTE LYMPHOCYTES (AUTO) 1.4 10^3/uL (0.5-4.7); ABSOLUTE MONOCYTES (AUTO) 0.6 10^3/uL (0.1-1.4); ABSOLUTE NEUT (AUTO) 8.6 10^3/uL (1.7-8.2); BASOPHILS % (AUTO) 0.5 % (0-2); EOSINOPHILS % (AUTO) 0.4 % (0-6); HEMATOCRIT 38.4 % (36.0-47.0); HEMOGLOBIN 12.7 g/dL (12.0-15.5); LYMPHOCYTES % (AUTO) 12.9 % (13-45); MEAN CORPUSCULAR HEMOGLOBIN 25.3 pg (27.0-33.4); MEAN CORPUSCULAR VOLUME 77 fl (80-97); MONOCYTES % (AUTO) 5.3 % (3-13); PLATELET COUNT 392 10^3/uL (150-450); RED BLOOD COUNT 5.01 10^6/uL (3.72-5.28); RED CELL DISTRIBUTION WIDTH 14.7 % (11.5-14.0); SEGMENTED NEUTROPHILS % (AUTO) 80.9 % (42-78); TOTAL CELLS COUNTED % (AUTO) 100 %; WHITE BLOOD COUNT 10.7 10^3/uL (4.0-10.5)
[2020-04-25 19:02] LABS: APPEARANCE,URINE CLEAR; BILIRUBIN,URINE NEGATIVE (NEGATIVE); COLOR,URINE YELLOW; GLUCOSE, URINE NEGATIVE (NEGATIVE); KETONES,URINE NEGATIVE (NEGATIVE); LEUKOCYTE ESTERASE,URINE NEGATIVE (NEGATIVE); NITRITE,URINE NEGATIVE (NEGATIVE); PROTEIN,URINE NEGATIVE (NEGATIVE); URINE SPECIFIC GRAVITY 1.004; UROBILINOGEN,URINE NEGATIVE mg/dL (<2.0)
[2020-04-25] MEDS ORDERED: OLANZAPINE 2.5 MG TABLET PO ONE (19:05)
[2020-04-25] MEDS ORDERED: FLUOXETINE HCL 20 MG CAPSULE PO ONE (19:05)
[2020-04-25 19:06] LABS: ALBUMIN 4.5 g/dL (3.5-5.0); ALKALINE PHOSPHATASE 101 U/L (38-126); ANION GAP 7 (5-19); ASPARTATE AMINO TRANSFERASE 26 U/L (14-36); BILIRUBIN,TOTAL 0.5 mg/dL (0.2-1.3); BLOOD UREA NITROGEN 9 mg/dL (7-20); CALCIUM 9.7 mg/dL (8.4-10.2); CARBON DIOXIDE 26 mmol/L (22-30); CHLORIDE 106 mmol/L (98-107); GLUCOSE 108 mg/dL (75-110); TOTAL PROTEIN 7.8 g/dL (6.3-8.2)
[2020-04-25 19:08] LABS: ACETAMINOPHEN < 10 ug/mL (10-30); ALCOHOL < 10 mg/dL (NONE DETECTED); SALICYLATE < 1.0 mg/dL (2.0-20.0)
[2020-04-25 19:14] LABS: URINE AMPHETAMINES SCREEN NEGATIVE; URINE BARBITURATES SCREEN NEGATIVE; URINE BENZODIAZEPINES SCREEN NEGATIVE; URINE COCAINE SCREEN NEGATIVE; URINE MARIJUANA (THC) SCREEN NEGATIVE; URINE METHADONE SCREEN NEGATIVE; URINE PHENCYCLIDINE SCREEN NEGATIVE
--- NOTE | 2020-04-25 19:27 | PSYCHOLOGICAL NOTE ---
Psych Note - Psych Note Date seen by psych provider: 04/25/20 Time seen by psych provider: 18:37 - Evaluation with patient from [id number]. Psych Note: Patient is a 20 year old female who presented to the Emergency Department this evening via privately owned vehicle for post depression and passive suicidal ideation. Patient identified she had depression prior to the of her baby 4.5 months ago. She acknowledged "I always tried to fight it myself, never had treatment, but the past few months I have needed help." She reported she goes to [facility] and is prescribed Prozac 20MG daily. She stated they suggested therapy but she declined at the time. She stated "I may need to start therapy." She stated she was first on a different medication (she could not recall the name), it was not helpful so 1-2 months ago they switched it to the Prozac. Patient stated "the Prozac is not working." Patient identified family mental health history: mother Bipolar Depression. Patient commented "I think I am too, one minute I am fine and the next if someone says something and I take it the wrong way I go off." Patient acknowledged "today I hit a breaking point, my and I were arguing and he told me to get help or he was leaving." Patient denied current suicidal ideation. She stated "I do have thoughts at times, thoughts of I don't want to be here, I have never tried anything." She denied previous mental health hospitalizations. She reported this is her first child, her has 3 children that live in the home and they don't want to listen to her since she isn't mom, and she used to be independent/work a lot but now doesn't have too (both positive and negative). Patient stated she was not breast feeding. Patient was alert and oriented to self, person, place, time and situation. Mood was depressed with congruent affect as evidenced by being tearful at times. She denied current suicidal and homicidal ideation, denied previous attempts and admitted to passive thoughts of not wanting to be here at times. Patient did not appear to be responding to internal stimuli as evidenced by fair eye contact and answering questions appropriately when addressed. Thought processes were linear and organized. Conversational speech was within normal limits for rate, tone and prosody. Intellectual abilities are estimated to be average. Insight, judgment and impulse control were fair as evidenced by seeking help. Clinical Presentation: Post Depression History of Depression Passive Suicidal Ideation at times Family History of Bipolar Disorder Medication recommendations made by the psychiatric medication provider Dr. Ashwin CORONA., includes: Continue Prozac 20MG daily for depression Add Zyprexa 2.5MG twice a day for mood stabilization/impulse control Impression/Plan: Patient is cleared from acute psychiatric services. She denied current suicidal ideation, admitted to passive thoughts of not wanting to be here at times an denied previous attempts. Provided medication adjustment. Informed patient just on prescription for ED to pay [facility] of pocket at [facility] because Medicaid required preauthorization which cannot happen with ED Providers. Her current medication provider is [facility]. She was instructed to follow up with them for medication management within 5-7 days and request individual therapy. Patient was provided with the outpatient mental health resource sheet which noted both mobile crisis numbers for crisis/talk therapy/linkage to other services and supports, as well as documented the follow up at [facility] in 507 days for medication management and request therapy. Consulted with Dr. Schulz regarding the management and care of patient. ED Physician in agreement with recommendations. For care coordination and continuity of care will fax patient referral form to [facility]. Patient also requested her lab work be faxed as they have needed some.
[2020-04-25 19:49] VITALS: BP 134/61
== END 2020-04-25 19:34 | disposition home or self-care (01) ==
LOC: ER 17:25
DX: F53.0 Postpartum depression (principal); R45.851 Suicidal ideations; Z79.899 Other long term (current) drug therapy; Z81.8 Family history of other mental and behavioral disorders
CPT/HCPCS: 99284; 36415; 80307 ×4; 84703; 85025; 80053; 81001; J3490